=== PATIENT | female | born 1985 | race Caucasian/White ===

== ENCOUNTER 2016-10-10 13:20 | Emergency (ER) | payer MEDICAID ==
[~2016-10-10] VITALS: Ht 165.1 cm; Wt 96.0 kg
[2016-10-10] MEDS ORDERED: DEXAMETHASONE 4 MG TABLET PO ONE (14:00)
[2016-10-10] MEDS ORDERED: IBUPROFEN 200 MG TABLET PO ONE (14:00)
[2016-10-10] MEDS ORDERED: IBUPROFEN 200 MG TABLET ONE (14:17)
[2016-10-10] MEDS ORDERED: DEXAMETHASONE 4 MG TABLET ONE (14:17)
[2016-10-10 14:51] VITALS: BP 121/76
== END 2016-10-10 14:53 | disposition home or self-care (01) ==
LOC: ED 14:43
DX: J02.0 Streptococcal pharyngitis (principal); J45.909 Unspecified asthma, uncomplicated
CPT/HCPCS: 99283

== ENCOUNTER 2017-05-03 16:18 | Emergency (ER) | payer MEDICAID ==
[~2017-05-03] VITALS: Ht 167.6 cm; Wt 78.1 kg
[2017-05-03 16:19] VITALS: BP 114/63
== END 2017-05-03 17:05 | disposition home or self-care (01) ==
LOC: ED 16:59
DX: K02.9 Dental caries, unspecified (principal); J45.909 Unspecified asthma, uncomplicated
CPT/HCPCS: 99283

== ENCOUNTER 2019-03-08 14:39 | Emergency (ER) | payer MEDICAID, OTHER ==
[~2019-03-08] VITALS: Ht 165.1 cm; Wt 90.9 kg
[2019-03-08 14:46] VITALS: BP 114/65
[2019-03-08] MEDS ORDERED: DIPHENHYDRAMINE 25 MG CAPSULE ONE (14:58)
[2019-03-08] MEDS ORDERED: DIPHENHYDRAMINE 25 MG CAPSULE PO ONE (15:00)
[2019-03-08] MEDS ORDERED: NEOSPORIN OINT. PKT 1 PACKET ONE (15:06)
--- NOTE | 2019-03-08 15:19 | NUR ---
CLEAN SET OF CLOTHES, SOCKS, HAT, WARM JACKET GIVEN TO PT. Patient/Caregiver given discharge instructions and they have confirmed that they understand the instructions. Patient ambulatory with steady gait.
== END 2019-03-08 15:20 | disposition home or self-care (01) ==
LOC: ED 15:11
DX: S60.461A Insect bite (nonvenomous) of left index finger, initial encounter (principal); W57.XXXA Bitten or stung by nonvenomous insect and other nonvenomous arthropods, initial encounter; Y93.89 Activity, other specified; Y92.89 Other specified places as the place of occurrence of the external cause; Y99.8 Other external cause status
CPT/HCPCS: 99283; Q0163

== ENCOUNTER 2019-03-30 13:07 | Emergency (ER) | payer SELFPAY ==
[~2019-03-30] VITALS: Ht 167.6 cm; Wt 90.5 kg
[2019-03-30 13:15] VITALS: BP 104/64
--- NOTE | 2019-03-30 13:22 | NUR ---
PATIENT BROUGHT BACK FROM TRIAGE WITH CHIEF COMPLAINT OF RIGHT HAND PAIN AFTER PUNCHING TRASH CAN TODAY AT 1130. CMS INTACT.
--- NOTE | 2019-03-30 13:31 | NUR ---
ASSISTANCE/REHAB/CLINIC/COUNSELING RESOURCES PROVIDED.
[2019-03-30] MEDS ORDERED: IBUPROFEN 200 MG TABLET ONE (14:41)
--- NOTE | 2019-03-30 14:44 | NUR ---
DISCHARGE INSTRUCTIONS REVIEWED.
[2019-03-30] MEDS ORDERED: IBUPROFEN 800 MG TABLET PO ONE (15:00)
== END 2019-03-30 15:41 | disposition home or self-care (01) ==
LOC: ED 14:43
DX: S60.221A Contusion of right hand, initial encounter (principal); J45.909 Unspecified asthma, uncomplicated; X58.XXXA Exposure to other specified factors, initial encounter; Y93.89 Activity, other specified; Y92.009 Unspecified place in unspecified non-institutional (private) residence as the place of occurrence of the external cause; Y99.8 Other external cause status
CPT/HCPCS: 29125; 99283

== ENCOUNTER 2019-07-08 08:55 | Emergency (ER) | payer MEDICAID ==
[~2019-07-08] VITALS: Ht 167.6 cm; Wt 96.0 kg
[2019-07-08 08:57] VITALS: BP 102/44
--- NOTE | 2019-07-08 09:29 | NUR ---
PT GIVEN DC INSTRUCTIONS AND SCRIPT, PT EDUCATED REGARDING DC RX. PT A&O, RESPS EVEN AND UNLABORED. PT GIVEN SNACK PRIOR TO DC. PT AMB TO DC DESK WITH STEADY GAIT, ALL QUESTIONS ANSWERED.
== END 2019-07-08 09:27 | disposition home or self-care (01) ==
LOC: ED 09:21
DX: J02.9 Acute pharyngitis, unspecified (principal); J45.909 Unspecified asthma, uncomplicated
CPT/HCPCS: 99283

== ENCOUNTER 2019-11-01 15:47 | Emergency (ER) | payer MEDICAID ==
[~2019-11-01] VITALS: Ht 157.5 cm; Wt 96.7 kg
[2019-11-01 16:29] VITALS: BP 101/55
--- NOTE | 2019-11-01 18:15 | NUR ---
WINDOW SHADE ESTIMATOR: CALLED FOR PT. PT NOT IN LOBBY AT THIS TIME.
--- NOTE | 2019-11-01 18:30 | NUR ---
CALLED FOR PT. PT NOT IN LOBBY FOR SECOND ATTEMPT.
--- NOTE | 2019-11-01 18:43 | NUR ---
WHEEL PRESS OPERATOR: CALLED FOR PT, THIRD ATTEMPT. PT NOT IN LOBBY. NOT IN RESTROOMS. PT DID NOT NOTIFY STAFF MEMBER PRIOR TO ELOPING.
== END 2019-11-01 18:47 | disposition left against medical advice (07) ==
LOC: ED 18:40
DX: M79.644 Pain in right finger(s) (principal)
CPT/HCPCS: 99283

== ENCOUNTER 2020-10-28 16:30 | Emergency (ER) | payer MEDICAID ==
[~2020-10-28] VITALS: Ht 167.6 cm; Wt 96.2 kg
--- NOTE | 2020-10-28 17:38 | NUR ---
PT AMBULATED STEADILY TO ROOM FROM [facility]
[2020-10-28] MEDS ORDERED: PHENAZOPYRIDINE 200 MG TABLET ONE (17:54)
[2020-10-28 17:58] VITALS: BP 119/60
[2020-10-28] MEDS ORDERED: PHENAZOPYRIDINE 200 MG TABLET PO ONE (18:00)
[2020-10-28 18:32] LABS: MICROSCOPIC INDICATED
--- NOTE | 2020-10-28 18:54 | NUR ---
REPORT GIVEN TO SANTOS GUILLORY
== END 2020-10-28 19:13 ==
LOC: ED 19:05
DX: N30.00 Acute cystitis without hematuria (principal); L03.313 Cellulitis of chest wall; F17.210 Nicotine dependence, cigarettes, uncomplicated; J45.909 Unspecified asthma, uncomplicated
CPT/HCPCS: 81001; 87077; 87086; 87186; 99406